=== PATIENT | female | born 1995 | race Hispanic/Latino ===

== ENCOUNTER → 2023-04-03 | Emergency (ER) | payer OTHER ==
[~2023-04-03] MED LIST: methocarbamoL 750 MG TAB ONE; predniSONE 20 MG TAB ONE
--- OUTSIDE RECORDS SUMMARY | 2023-04-03 10:25 | XMS REPORT | Continuity of Care Document ---
Author Name Unknown Address [address] [facility] [place] [address] [facility] thconnect Address [address] [facility] 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 Role Phone PCP, PATIENT DOES NOT HAVE A Primary Care Physic ZACK Rolon Attending Clinician Unavailable Payers Payer Name Policy Type Policy Number Effective Date Expirati on Date Source [employer] [facility] CARE [id number] 2017 00:00:00 2020 00:00:00 [facility] - OUT OF STATE [id number] 2017 00:00:00 Allergies, Adverse Reactions, Alerts Allergy Name Allergy Type Status Severity Reaction(s) Onset Date Inactive Date Treating Clinician Comments Source NO KNOWN ALLERGIE S Drug Class Active [facility] Encounters Start Date/Time End Date/Time Encounter Type Admission Type Attending Clinicians Care Facility Care Department Encounter ID Source 2019-04-27 20:30:00 2019-04-27 20:51:17 Outpatient [facility] [id number] [facility]
--- NOTE | 2023-04-03 11:59 | RAD REPORT ---
EXAM DESCRIPTION: RAD - Lumbar Spine 3 Views - 04/03/2023 11:10 am CLINICAL HISTORY: PAIN COMPARISON: No comparisons TECHNIQUE: Lumbar spine, 3 views. FINDINGS: Lumbar vertebral bodies are normal in height and alignment. No fracture or acute bony proc ess seen. No disc space narrowing. No other significant findings. IMPRESSION: Negative Lumbar Spine examination.
--- NOTE | 2023-04-03 13:02 | EDPHYS ---
Physician Documentation [facility] Name: Jill Manzo Age: 27 yrs Sex: Female : 1995 Arrival Date: 04/03/2023 Time: 10:23 Bed 17 Private MD: Teodoro Adam B ED Physician Kenyon Begum Historical: - Allergies: 04/03 10:42 No Known Allergies; hb - Home Meds: 10:42 None [Active]; hb - PMHx: 10:42 None; hb - PSHx: 10:42 None; hb - Immunization history:: Adult Immunizations up to date. - Social history:: Smoking status: Patient denies any tobacco usage or history of. Vital Signs: 10:40 BP 163 / 99; Pulse 86; Resp 16; Temp 98.1; Pulse Ox 100% on R/A; Weight 58.97 kg; hb Height 4 ft. 11 in. ; Pain 9/10; 10:40 Body Mass Index 26.26 (58.97 kg, 149.86 cm) hb 10:40 Pain Scale: Adult hb MDM: 13:01 Patient medically screened. kdr 04/03 10:47 Order name: Lumbar Spine (3 Views) XRAY; Complete Time: 12:42 kdr Administered Medications: 10:53 Drug: Methocarbamol PO 750 mg PO once; Two tabs x1 {Note: 1,[address] Begum.} kc6 Route: PO; 11:46 Follow up: Response: No adverse reaction; Pain is decreased; RASS: Alert and Calm (0) kc6 10:54 Drug: predniSONE PO 60 mg PO once Route: PO; kc6 11:46 Follow up: Response: No adverse reaction; Pain is decreased kc6 Disposition Summary: 04/03/23 13:01 Discharge Ordered Notes: If your pain persists you will need an MRI of your lumbar spine Location: Home kdr Problem: new kdr Symptoms: have improved kdr Condition: Stable kdr Diagnosis - Low back pain kdr Followup: kdr - With: Teodoro Adam MD - When: 2 - 3 days - Reason: If symptoms return, Further diagnostic work-up, Recheck today's complaints, Continuance of care, Re-evaluation by your physician Discharge Instructions: - Discharge Summary Sheet kdr - Acute Back Pain, Adult kdr - Back Exercises, [id number] kdr - Heat Therapy kdr Forms: - Medication Reconciliation Form kdr - Thank You Letter kdr - Patient Portal Instructions kdr - Leadership Thank You Letter kdr - Work release form kc6 Prescriptions: - Ibuprofen 600 mg Oral Tablet - take 1 tablet ORAL route every 6 hours As needed take with food; 30 tablet; kdr Refills: 0, Product Selection Permitted - Cyclobenzaprine 10 mg Oral tablet - take 1 tablet ORAL route every 8 hours As needed; 21 tablet; Refills: 0, kdr Product Selection Permitted - Medrol (Saul) 4 mg Oral Tablets, Dose Pack - take 1 tablet ORAL route as directed - follow package instructions; 1 packet; kdr Refills: 0, Product Selection Permitted Signatures: Dispatcher [employer] Kenyon Linton MD MD kdr Yumiko Marshall, RN RN Stacey Shaw RN RN kc6
--- NOTE | 2023-04-03 13:02 | ER ---
Nurse's Notes [facility] Name: Jill Manzo Age: 27 yrs Sex: Female : 1995 Arrival Date: 04/03/2023 Time: 10:23 Bed 17 Private MD: Teodoro Adam B Diagnosis: Low back pain Presentation: 04/03 10:40 Chief complaint: Low back pain that radiates to right leg x 3 weeks, became severe last hb night. Denies injury but lifts heavy weights/works out daily. Coronavirus screen: At this time, the client does not indicate any symptoms associated with coronavirus-19. Ebola Screen: No symptoms or risks identified at this time. Initial Sepsis Screen: Does the patient meet any 2 criteria? No. Patient's initial sepsis screen is negative. Does the patient have a suspected source of infection? No. Patient's initial sepsis screen is negative. Risk Assessment: Do you want to hurt yourself or someone else? Patient reports no desire to harm self or others. Onset of symptoms was April 03, 2023. 10:40 Method Of Arrival: Ambulatory hb 10:40 Acuity: NAS 4 hb Triage Assessment: 10:42 General: Appears in no apparent distress. Behavior is calm, cooperative. Pain: Pain hb currently is 9 out of 10 on a pain scale. Neuro: Level of Consciousness is awake, alert, obeys commands, Oriented to person, place, time, situation. Cardiovascular: Patient's skin is warm and dry. Respiratory: Respiratory effort is even, unlabored, Respiratory pattern is regular, symmetrical. Musculoskeletal: Reports low back pain that radiates to right leg. Historical: - Allergies: 10:42 No Known Allergies; hb - Home Meds: 10:42 None [Active]; hb - PMHx: 10:42 None; hb - PSHx: 10:42 None; hb - Immunization history:: Adult Immunizations up to date. - Social history:: Smoking status: Patient denies any tobacco usage or history of. Screenin:47 [facility] ED Fall Risk Assessment (Adult) History of falling in the last 3 months, kc6 including since admission No falls in past 3 months (0 pts) Confusion or Disorientation No (0 pts) Intoxicated or Sedated No (0 pts) Impaired Gait No (0 pts) Mobility Assist Device Used No (0 pt) Altered Elimination No (0 pt) Score/Fall Risk Level 0 - 2 = Low Risk. Abuse screen: Denies threats or abuse. Denies injuries from another. Nutritional screening: No deficits noted. Tuberculosis screening: No symptoms or risk factors identified. Assessment: 10:48 General: Appears in no apparent distress. uncomfortable, well groomed, well developed, kc6 Behavior is calm, cooperative, appropriate for age. Pain: Complains of pain in back and right leg. Neuro: Level of Consciousness is awake, alert, obeys commands, Oriented to person, place, time, situation, Appropriate for age. Cardiovascular: Capillary refill < 3 seconds. Respiratory: Airway is patent Trachea midline Respiratory effort is even, unlabored, Respiratory pattern is regular, symmetrical. GI: No signs and/or symptoms were reported involving the gastrointestinal system. : No signs and/or symptoms were reported regarding the genitourinary system. EENT: No signs and/or symptoms were reported regarding the EENT system. Derm: No signs and/or symptoms reported regarding the dermatologic system. Skin is intact, is healthy with good turgor, Skin is pink, warm \T\ dry. Musculoskeletal: No signs and/or symptoms reported regarding the musculoskeletal system. Circulation, motion, and sensation intact. Capillary refill < 3 seconds, Range of motion: intact in all extremities. 11:41 Reassessment: Patient appears in no apparent distress at this time. No changes from kc6 previously documented assessment. Patient and/or family updated on plan of care and expected duration. Pain level reassessed. Patient is alert, oriented x 3, equal unlabored respirations, skin warm/dry/pink. 12:35 Reassessment: Patient appears in no apparent distress at this time. No changes from kc6 previously documented assessment. Patient and/or family updated on plan of care and expected duration. Pain level reassessed. Patient is alert, oriented x 3, equal unlabored respirations, skin warm/dry/pink. Vital Signs: 10:40 BP 163 / 99; Pulse 86; Resp 16; Temp 98.1; Pulse Ox 100% on R/A; Weight 58.97 kg; hb Height 4 ft. 11 in. ; Pain 9/10; 10:40 Body Mass Index 26.26 (58.97 kg, 149.86 cm) hb 10:40 Pain Scale: Adult hb ED Course: 10:28 Patient arrived in ED. mr 10:28 Teodoro Adam MD is Private Physician. mr 10:29 Kenyon Begum MD is Attending Physician. kdr 10:35 Stacey Garcia, CHEMO is Primary Nurse. kc6 10:42 Triage completed. hb 10:47 Patient maintains SpO2 saturation greater than 95% on room air. kc6 10:48 Patient has correct armband on for positive identification. Bed in low position. Call kc6 light in reach. Side rails up X 1. Adult w/ patient. Client placed on continuous cardiac and pulse oximetry monitoring. NIBP monitoring applied. 10:48 Arm band placed on. kc6 11:12 Lumbar Spine (3 Views) XRAY In Process Unspecified. EDMS 13:00 Teodoro Adam MD is Referral Physician. kdr 13:08 No provider procedures requiring assistance completed. Patient did not have IV access kc6 during this emergency room visit. Administered Medications: 10:53 Drug: Methocarbamol PO 750 mg PO once; Two tabs x1 {Note: 1,[address] Begum.} kc6 Route: PO; 11:46 Follow up: Response: No adverse reaction; Pain is decreased; RASS: Alert and Calm (0) kc6 10:54 Drug: predniSONE PO 60 mg PO once Route: PO; kc6 11:46 Follow up: Response: No adverse reaction; Pain is decreased kc6 Medication: 13:08 VIS not applicable for this client. kc6 Outcome: 13:01 Discharge ordered by . kdr 13:08 Discharged to home ambulatory, with family, kc6 13:08 Condition: improved 13:08 Discharge instructions given to patient, Instructed on discharge instructions, follow up and referral plans. medication usage, Demonstrated understanding of instructions, follow-up care, medications, Prescriptions given X 3, 13:09 Patient left the ED. kc6 Signatures: Dispatcher [employer] EDPA Kenyon Begum MD MD kdr Rivera, Mary, Shaw Reg mr MarshallYumiko, RN RN Stacey Garcia, CHEMO RN kc6
[2023-04-03 13:32] VITALS: BP 163/99; TEMP 98.1; O2SAT 100
== END ==
LOC: ER 10:23
DX: M54.50 Low back pain, unspecified (principal)
CPT/HCPCS: 72100; J7512; 99284